=== PATIENT | male | born 1975 | race Caucasian/White ===

== ENCOUNTER 2018-09-03 16:56 | Emergency (ER) | payer SELFPAY ==
[~2018-09-03] VITALS: Ht 175.3 cm; Wt 95.3 kg
[2018-09-03] MEDS ORDERED: PRED5TAB PO (17:45)
[2018-09-03] MEDS ORDERED: TETANUS,DIPTH,PERTUSS P/F (BOOSTRIX) 0.5 ML VIAL IM ONE (17:45)
[2018-09-03] MEDS ORDERED: ACHD5005 PO (17:45)
--- NOTE | 2018-09-03 17:45 | ED Integumentary General ---
General Chief Complaint: Bite-Animal/Human/Insect Stated Complaint: POSS BROWN RECLUSE BITE L HAND Source: patient Exam Limitations: no limitations History of Present Illness Date Seen by Provider: Sep 03, 2018 Time Seen by Provider: 17:40 Initial Comments to ER with lesion to the dorsal aspect second MCP joint left hand. This began W 08/29/18. [place] a small prick inside very small spider running off. Follow-up with [facility], 1928–1983 and is currently on Bactrim. Despite that the area of redness has now expanded to about the size of a quarter and is very painful. No systemic symptoms Timing/Duration: just prior to arrival Severity: moderate Location: hands Possible Cause: insect bite Allergies and Home Medications Allergies Coded Allergies: No Known Drug Allergies (Unverified , 09/03/18) Patient Home Medication List Home Medication List Reviewed: Yes Review of Systems Review of Systems Constitutional: see HPI EENTM: see HPI Respiratory: no symptoms reported Cardiovascular: no symptoms reported Genitourinary: no symptoms reported Musculoskeletal: no symptoms reported Skin: see HPI Psychiatric/Neurological: No Symptoms Reported Endocrine: No Symptoms Reported Past Mrdvxrw-Ziipjv-Qfalea Hx Patient Social History Alcohol Use: Denies Use Recreational Drug Use: No Smoking Status: Current Everyday Smoker Type Used: Cigarettes Recent Foreign Travel: No Contact w/Someone Who Travel: No Recent Hopitalizations: No Immunizations Up To Date Tetanus Booster (TDap): Unknown PED Vaccines UTD: Yes Seasonal Allergies Seasonal Allergies: No Past Medical History Surgeries: Yes Orthopedic Respiratory: No Cardiac: No Neurological: No Genitourinary: No Gastrointestinal: No Musculoskeletal: No Endocrine: No HEENT: No Cancer: No Psychosocial: No Integumentary: No Blood Disorders: No Physical Exam Vital Signs Capillary Refill : General Appearance: WD/WN, no apparent distress Respiratory: no respiratory distress, no accessory muscle use Neurologic/Psychiatric: alert, normal mood/affect, oriented x 3 Skin: normal color, warm/dry Skin Problem Character: erythema (quarter sized area dorsal aspect second MCP joint left hand. This is well circumscribed. No lymphangitis no fluctuance. There is an ecchymotic appearance to this area of erythema with a small punctum in the center. This could indeed be a brown recluse bite. There was an eschar that I was able to lift off and culture beneath.) Departure Impression Primary Impression: Spider bite wound Qualified Codes: T63.301A - Toxic effect of unspecified spider venom, accidental (unintentional), initial encounter Disposition: 01 HOME, SELF-CARE Condition: Stable Departure-Patient Inst. Decision time for Depature: 17:42 Referrals: BRANDON SIERRA BETHANY N MD GAULT, HOLLY R MD NO,LOCAL PHYSICIAN (PCP) Primary Care Physician Patient Instructions: Spider Bites Add. Discharge Instructions: 1. Continue the antibiotic 2. Add the steroids as directed and pain medication as well. Follow-up with [facility] in 1-2 weeks for recheck. Return to ER for any concerns. If you do not have primary care, follow-up with [facility] who does not require income, or insurance and can oftentimes helpful medications without expense All discharge instructions reviewed with patient and/or family. Voiced understanding. Scripts Prednisone (Prednisone) 5 Mg Tablet 40 MG PO DAILY, #32 TAB Prov: TEREZA LOVE GASTROENTEROLOGY NURSE PRACTITIONER 09/03/18 Hydrocodone Bit/Acetaminophen (Hydrocodone/Acetaminophen 5/325mg Tablet) 1 Tab Tab 1 EACH PO Q4-6HR PRN for PAIN-MODERATE MDD 10 for 3 Days, #14 TAB Prov: TEREZA LOVE GASTROENTEROLOGY NURSE PRACTITIONER 09/03/18 TEREZA LOVE GASTROENTEROLOGY NURSE PRACTITIONER Sep 03, 2018 17:45
[2018-09-03 18:12] VITALS: BP 122/91
== END 2018-09-03 18:12 | disposition home or self-care (01) ==
LOC: ER 16:58
DX: T63.301A Toxic effect of unspecified spider venom, accidental (unintentional), initial encounter (principal); F17.210 Nicotine dependence, cigarettes, uncomplicated
CPT/HCPCS: 87070; 87077; 87186; 87205; 90471; 90715; 99284

== ENCOUNTER 2018-09-04 17:26 | Emergency (ER) | payer SELFPAY ==
[~2018-09-04] VITALS: Ht 177.8 cm; Wt 95.3 kg
[~2018-09-04 17:26] MED LIST: ACHD5005 PO; PRED5TAB PO
[2018-09-04] MEDS ORDERED: ANTACID SUSP 30 ML UDC (MYLANTA) PO ONE (17:45)
[2018-09-04] MEDS ORDERED: LIDOCAINE 2% VISCOUS 15 ML UDC PO ONE (17:45)
[2018-09-04] MEDS ORDERED: LACTATED RINGERS 1,000 ML IV SCH (18:15)
[2018-09-04 18:25] LABS: BASOPHILS % (AUTO) 0 % (0-10); EOSINOPHILS # (AUTO) 0.1 10^3/uL (0.0-0.3); EOSINOPHILS % (AUTO) 0 % (0-10); HEMATOCRIT 45 % (40-54); HEMOGLOBIN 15.2 G/DL (13.3-17.7); LYMPHOCYTES # (AUTO) 2.2 X 10^3 (1.0-4.0); LYMPHOCYTES % (AUTO) 10 % (12-44); MEAN CORPUSCULAR HEMOGLOBIN 30 PG (25-34); MEAN CORPUSCULAR HGB CONC 34 G/DL (32-36); MEAN CORPUSCULAR VOLUME 88 FL (80-99); MEAN PLATELET VOLUME 11.4 FL (7.4-10.4); MONOCYTES % (AUTO) 5 % (0-12); NEUTROPHILS # (AUTO) 17.9 X 10^3 (1.8-7.8); NEUTROPHILS % (AUTO) 85 % (42-75); PLATELET COUNT 249 10^3/uL (130-400); RED CELL DISTRIBUTION WIDTH 13.8 % (10.0-14.5); WHITE BLOOD COUNT 21.2 10^3/uL (4.3-11.0)
[2018-09-04] MEDS ORDERED: ONDANSETRON 4 MG/2 ML (SDV) Z0FRAN IVP ONE (18:30)
[2018-09-04] MEDS ORDERED: FAMOTIDINE 20MG/2ML IV (PEPCID) IVP ONE (18:30)
--- NOTE | 2018-09-04 18:42 | ED General ---
General Chief Complaint: Abdominal/GI Problems Stated Complaint: "BURNING HICCUPS" Nursing Triage Note: pt was in here yesterday for abscess of finger. Today he has nausea and increased pain. Pt has bad indigestion and "burning hiccups" Nursing Sepsis Screen: No Definite Risk Source of Information: Patient Exam Limitations: No Limitations History of Present Illness Date Seen by Provider: Sep 04, 2018 Time Seen by Provider: 18:38 Initial Comments To ER per private vehicle with reports of nausea, finger pain and severe heartburn. He was seen here yesterday for the finger pain suspected to be a spider bite. Prior to that he been seen by primary care, given a prescription for Bactrim. I added prednisone yesterday. Comes in today with epigastric burning and nausea and heartburn. On arrival we gave a GI cocktail, initially this didn't help over the course of about 30 minutes it did significantly help his symptoms. He reports increased swelling and pain to the lesion on the left pointer finger. Timing/Duration: 1-2 Days Severity: Moderate Associated Systoms: Nausea/Vomiting Allergies and Home Medications Allergies Coded Allergies: No Known Drug Allergies (Unverified , 09/03/18) Home Medications Hydrocodone Bit/Acetaminophen 1 Tab Tab, 1 EACH PO Q4-6HR PRN for PAIN-MODERATE Prescribed by: STEPHANE LOVE on 09/03/181744 Prednisone 5 Mg Tablet, 40 MG PO DAILY Prescribed by: STEPHANE LOVE on 09/03/181744 Patient Home Medication List Home Medication List Reviewed: Yes Review of Systems Review of Systems Constitutional: see HPI; No chills, No fever EENTM: see HPI Respiratory: no symptoms reported Cardiovascular: no symptoms reported Gastrointestinal: nausea Genitourinary: no symptoms reported Musculoskeletal: see HPI Skin: see HPI Psychiatric/Neurological: No Symptoms Reported Hematologic/Lymphatic: No Symptoms Reported Immunological/Allergic: no symptoms reported Past Eapwcqj-Yatein-Lvtcjp Hx Patient Social History Alcohol Use: Occasionally Uses Recreational Drug Use: No Type Used: Cigarettes Recent Foreign Travel: No Contact w/Someone Who Travel: No Recent Infectious Disease Expo: No Recent Hopitalizations: No Immunizations Up To Date Tetanus Booster (TDap): Unknown PED Vaccines UTD: Yes Seasonal Allergies Seasonal Allergies: No Past Medical History Surgeries: Yes Orthopedic Respiratory: No Cardiac: No Neurological: No Genitourinary: No Gastrointestinal: No Musculoskeletal: No Endocrine: No HEENT: No Cancer: No Psychosocial: No Integumentary: No Blood Disorders: No Physical Exam Vital Signs Vital Signs - First Documented 09/04/18 17:30 Temp 98.1 Pulse 86 Resp 18 Pulse Ox 100 O2 Delivery Room Air Capillary Refill : Less Than 3 Seconds Height, Weight, BMI Height: 5'10.00" Weight: 210lbs. oz. 95.262804nj; BMI Method:Stated General Appearance: No Apparent Distress, WD/WN, Other (GI cocktail completely resolved his heartburn and epigastric pain about 30 minutes after administration.) Eyes: Bilateral Eye Normal Inspection, Bilateral Eye PERRL, Bilateral Eye EOMI HEENT: PERRL/EOMI, TMs Normal Respiratory: No Accessory Muscle Use, No Respiratory Distress Extremity: Normal Capillary Refill, Other (the well circumscribed quarter-sized lesion to the dorsal radial aspect of the left pointer finger is a bit more swollen today and with some fluctuance today which was not present yesterday. We did incision and drainage, moderate amount of purulent material from this. I cultured this yesterday but that is not back yet.) Neurologic/Psychiatric: Alert, Oriented x3 Procedures/Interventions I&D : Blade Size: 11 Progress Locally anesthetized with 1% lidocaine without epinephrine, 1 cm incision made with a 15 blade scalpel. Large amount of purulent material expressed. Progress/Results/Core Measures Suspected Sepsis Recent Fever Within 48 Hours: No Infection Criteria Present: Suspected New Infection New/Unexplained Altered Menta: No Sepsis Screen: No Definite Risk SIRS Temperature:98.1 Pulse: 86 Respiratory Rate: 18 Laboratory Tests 09/04/18 18:19: White Blood Count 21.2H Blood Pressure / Mean: Laboratory Tests 09/04/18 18:19: Creatinine 1.22, Platelet Count 249, Total Bilirubin 0.3 Results/Orders Lab Results Laboratory Tests Test 09/04/18 18:19 Range/Units White Blood Count 21.2 H 4.3-11.0 10^3/uL Red Blood Count 5.14 4.35-5.85 10^6/uL Hemoglobin 15.2 13.3-17.7 G/DL Hematocrit 45 40-54 % Mean Corpuscular Volume 88 80-99 FL Mean Corpuscular Hemoglobin 30 25-34 PG Mean Corpuscular Hemoglobin Concent 34 32-36 G/DL Red Cell Distribution Width 13.8 10.0-14.5 % Platelet Count 249 130-400 10^3/uL Mean Platelet Volume 11.4 H 7.4-10.4 FL Neutrophils (%) (Auto) 85 H 42-75 % Lymphocytes (%) (Auto) 10 L 12-44 % Monocytes (%) (Auto) 5 0-12 % Eosinophils (%) (Auto) 0 0-10 % Basophils (%) (Auto) 0 0-10 % Neutrophils # (Auto) 17.9 H 1.8-7.8 X 10^3 Lymphocytes # (Auto) 2.2 1.0-4.0 X 10^3 Monocytes # (Auto) 1.0 0.0-1.0 X 10^3 Eosinophils # (Auto) 0.1 0.0-0.3 10^3/uL Basophils # (Auto) 0.0 0.0-0.1 10^3/uL Neutrophils % (Manual) 87 % Lymphocytes % (Manual) 6 % Monocytes % (Manual) 5 % Eosinophils % (Manual) 0 % Basophils % (Manual) 0 % Band Neutrophils 1 % Reactive Lymphocytes 1 % Blood Morphology Comment NORMAL Sodium Level 136 135-145 MMOL/L Potassium Level 4.1 3.6-5.0 MMOL/L Chloride Level 105 98-107 MMOL/L Carbon Dioxide Level 22 21-32 MMOL/L Anion Gap 9 5-14 MMOL/L Blood Urea Nitrogen 12 7-18 MG/DL Creatinine 1.22 0.60-1.30 MG/DL Estimat Glomerular Filtration Rate > 60 BUN/Creatinine Ratio 10 Glucose Level 150 H 70-105 MG/DL Calcium Level 9.6 8.5-10.1 MG/DL Corrected Calcium 8.5-10.1 MG/DL Total Bilirubin 0.3 0.1-1.0 MG/DL Aspartate Amino Transf (AST/SGOT) 16 5-34 U/L Alanine Aminotransferase (ALT/SGPT) 25 0-55 U/L Alkaline Phosphatase 108 40-136 U/L Troponin I < 0.028 <0.028 NG/ML Total Protein 7.3 6.4-8.2 GM/DL Albumin 4.7 H 3.2-4.5 GM/DL My Orders Orders - STEPHANE LOVE APRN Antacid Suspension (Mylanta Suspension (09/04/18 17:45) Lidocaine 2% Viscous 15 Ml (Xylocaine Vi (09/04/18 17:45) Lactated Ringers (Lr 1000 Ml Iv Solution (09/04/18 18:15) Famotidine Injection (Pepcid Injection) (09/04/18 18:30) Ondansetron Injection (Zofran Injectio (09/04/18 18:30) Cbc With Automated Diff (09/04/18 18:16) Comprehensive Metabolic Panel (09/04/18 18:16) Troponin I (09/04/18 18:16) Manual Differential (09/04/18 18:19) Clindamycin 900 Mg/50 Ml Ivpb (Cleocin P (09/04/18 18:45) Medications Given in ED Current Medications Medications Dose Ordered Sig/Cristy Route Start Time Stop Time Status Last Admin Dose Admin Al Hydrox/Mg Hydrox/Simethicone 30 ml ONCE ONCE PO 09/04/18 17:45 09/04/18 17:46 DC 09/04/18 17:50 30 ML Clindamycin Phosphate/Dextrose 50 ml @ 100 mls/hr ONCE ONCE IV 09/04/18 18:45 09/04/18 19:14 09/04/18 18:43 100 MLS/HR Famotidine 20 mg ONCE ONCE IVP 09/04/18 18:30 09/04/18 18:31 DC 09/04/18 18:32 20 MG Lidocaine HCl 10 ml ONCE ONCE PO 09/04/18 17:45 09/04/18 17:46 DC 09/04/18 17:50 10 ML Ondansetron HCl 8 mg ONCE ONCE IVP 09/04/18 18:30 09/04/18 18:31 DC 09/04/18 18:32 8 MG Vital Signs/I&O 09/04/18 17:30 Temp 98.1 Pulse 86 Resp 18 B/P (MAP) Pulse Ox 100 O2 Delivery Room Air Capillary Refill : Less Than 3 Seconds Departure Communication (Admissions) Prednisone use accounts for leukocytosis Impression Primary Impression: Finger wound, simple, open Qualified Codes: S61.209A - Unspecified open wound of unspecified finger without damage to nail, initial encounter Disposition: 01 HOME, SELF-CARE Condition: Stable Departure-Patient Inst. Decision time for Depature: 18:53 Referrals: NO,LOCAL PHYSICIAN (PCP/Family) Primary Care Physician Patient Instructions: NO INSTRUCTIONS GIVEN Add. Discharge Instructions: 1. Return to ER on Monday for a wound check whenever is convenient for you preferably after 11 AM because that's when Stephane Love arrives. However if you notice any significant worsening in the meantime U should return to ER. This would include swelling of the whole hand fevers or other concerns. You can stop the prednisone. For the heartburn use Pepcid (famotidine) 20 mg twice a day or Zantac (ranitidine) 150 mg twice a day. You do not have to take these if you do not have heartburn. Continue taking the bactrim (trimethoprim/sulfamethoxazole). You can shower starting tonight letting water/soap run over this but do not soak it in water like a dish sink or hot tub. This Keep this covered with either a b andaid or gauze wrap for 2-3 days until the drainage stops. Expect it to drain a bit for a few days. STEPHANE LOVE BURGLAR ALARM MECHANIC Sep 04, 2018 18:42
[2018-09-04 18:44] LABS: BAND NEUTROPHILS 1 %; EOSINOPHILS % (MANUAL) 0 %; LYMPHOCYTES % (MANUAL) 6 %; MONOCYTES % (MANUAL) 5 %; NEUTROPHILS % (MANUAL) 87 %
[2018-09-04 18:45] LABS: BASOPHILS % (MANUAL) 0 %; RBC MORPH NORMAL; REACTIVE LYMPHOCYTES 1 %
[2018-09-04] MEDS ORDERED: CLINDAMYCIN 900 MG/50 ML IVPB 50 ML IV ONE (18:45)
[2018-09-04 18:46] LABS: ALANINE AMINOTRANSFERASE 25 U/L (0-55); ALBUMIN 4.7 GM/DL (3.2-4.5); ALKALINE PHOSPHATASE 108 U/L (40-136); BILIRUBIN,TOTAL 0.3 MG/DL (0.1-1.0); BUN/CREATININE RATIO 10; CALCIUM 9.6 MG/DL (8.5-10.1); CARBON DIOXIDE 22 MMOL/L (21-32); CHLORIDE 105 MMOL/L (98-107); CREATININE SERUM 1.22 MG/DL (0.60-1.30); GFR ESTIMATED > 60; GLUCOSE 150 MG/DL (70-105); POTASSIUM 4.1 MMOL/L (3.6-5.0); SODIUM 136 MMOL/L (135-145); TOTAL PROTEIN 7.3 GM/DL (6.4-8.2)
[2018-09-04] MEDS ORDERED: RX-ONDANSETRON 4 MG ODT (ZOFRAN) PPK #4 PO STA (18:58)
[2018-09-04 19:16] VITALS: BP 148/68
== END 2018-09-04 19:16 | disposition home or self-care (01) ==
LOC: EDUNIT# 17:26 → ER 17:27
DX: S61.201A Unspecified open wound of left index finger without damage to nail, initial encounter (principal); X58.XXXA Exposure to other specified factors, initial encounter
CPT/HCPCS: 36415; 80053; 84484; 85007; 85027; 96374; 96375

== ENCOUNTER 2018-09-07 11:17 | Emergency (ER) | payer SELFPAY ==
[~2018-09-07] VITALS: Ht 177.8 cm; Wt 99.8 kg
--- NOTE | 2018-09-07 12:45 | NUR ---
SEE MCDANIEL CHARTING FOR DESCRIPTION OF WOUND.
--- NOTE | 2018-09-07 12:46 | ED Suture Removal/Wound Check ---
Suture/Wound Re-check General Appearance: WD/WN, no apparent distress Neuro/Tendon: normal sensation Skin Exam: normal color, warm/dry Physical Exam Vital Signs Vital Signs - First Documented 09/07/18 12:00 Pulse 76 Resp 16 B/P (MAP) 125/91 Pulse Ox 98 O2 Delivery Room Air Capillary Refill : General Appearance: WD/WN, no apparent distress Respiratory: no respiratory distress, no accessory muscle use Neurologic/Psychiatric: alert, normal mood/affect, oriented x 3 Skin: normal color, warm/dry Skin Problem Location: upper extremities Skin Problem Character: warm (the abscess to the dorsal radial side of the left pointer finger has reduced in size, there is no residual fluctuance, the erythema has reduced, continues to have some serosanguineous drainage from the incisions made during incision and drainage. He reports subjective improvement as well with ability to make a clenched fist now which he could not do 3 days ago. Culture showed staph, this may simply be a contaminant. He is on Bactrim) Departure Impression Primary Impression: Visit for wound care Disposition: 01 HOME, SELF-CARE Condition: Stable Departure-Patient Inst. Decision time for Depature: 12:45 Referrals: NO,LOCAL PHYSICIAN (PCP/Family) Primary Care Physician Patient Instructions: Wound Care (DC) Add. Discharge Instructions: 1. Continue to keep this covered as long as it oozing for the next 5 days or so. Whenever it quits oozing then you can leave it open to air. Continue to finish out the antibiotics. All discharge instructions reviewed with patient and/or family. Voiced understanding. TEREZA LOVE APRN Sep 07, 2018 12:46
[2018-09-07 12:50] VITALS: BP 125/91
== END 2018-09-07 12:50 | disposition home or self-care (01) ==
LOC: EDUNIT# 11:17 → ER 11:19
DX: L02.512 Cutaneous abscess of left hand (principal)